=== PATIENT | female | born 1945 | race Two or more races ===

== ENCOUNTER 2018-01-29 15:14 | Outpatient (CLI) | payer OTHER ==
[~2018-01-29 15:14] MED LIST: AVAPRO150 MG; PNEU16DI2; SYNTHROID137 MCG; TOPROL XL100 M1; VITAMIN D10000 UNIT
== END 2018-01-29 15:22 | disposition home or self-care (01) ==
LOC: RAD 501 15:14
DX: M25.561 Pain in right knee (principal); M16.11 Unilateral primary osteoarthritis, right hip

== ENCOUNTER 2020-06-22 12:26 | Outpatient (CLI) | payer OTHER | END 2020-06-22 12:32 | disposition HB | LOC: MAMO-SONO 12:26 | DX: N64.59 Other signs and symptoms in breast (principal); R92.0 Mammographic microcalcification found on diagnostic imaging of breast ==

== ENCOUNTER 2020-09-25 10:23 | Outpatient (CLI) | payer OTHER | END 2020-09-25 11:59 | disposition home or self-care (01) | LOC: LAB 10:23 | DX: E78.2 Mixed hyperlipidemia (principal); E11.65 Type 2 diabetes mellitus with hyperglycemia ==

== ENCOUNTER 2021-08-01 13:36 | Outpatient (CLI) | payer OTHER | END 2021-08-01 13:44 | disposition home or self-care (01) | LOC: MAMO-SONO 13:36 | PROVIDERS: ATTEND Internal Medicine Hematology & Oncology | DX: C50.919 Malignant neoplasm of unspecified site of unspecified female breast (principal) ==

== ENCOUNTER 2021-09-02 08:00 | Outpatient (CLI) | payer OTHER | END 2021-09-02 08:30 | disposition home or self-care (01) | LOC: PPH VACUNA 08:00 | PROVIDERS: ATTEND Emergency Medicine Pediatric Emergency Medicine | DX: Z23 Encounter for immunization (principal) ==

== ENCOUNTER 2021-11-01 13:46 | Outpatient (CLI) | payer OTHER | END 2021-11-01 13:50 | disposition home or self-care (01) | LOC: RAD 13:46 | PROVIDERS: ATTEND Internal Medicine Cardiovascular Disease | DX: I11.9 Hypertensive heart disease without heart failure (principal) ==

== ENCOUNTER 2022-02-17 13:38 | Outpatient (CLI) | payer OTHER | END 2022-02-17 13:48 | disposition home or self-care (01) | LOC: PPH VACUNA 13:38 | PROVIDERS: ATTEND Emergency Medicine Pediatric Emergency Medicine | DX: Z23 Encounter for immunization (principal) ==

== ENCOUNTER 2022-07-28 12:14 | Outpatient (CLI) | payer OTHER | END 2022-07-28 12:17 | disposition home or self-care (01) | LOC: TOM 12:14 | PROVIDERS: ATTEND Internal Medicine | DX: G45.9 Transient cerebral ischemic attack, unspecified (principal) ==

== ENCOUNTER 2022-11-10 13:43 | Outpatient (CLI) | payer OTHER | END 2022-11-10 13:54 | disposition home or self-care (01) | LOC: RAD 13:43 | PROVIDERS: ATTEND Orthopaedic Surgery | DX: M17.0 Bilateral primary osteoarthritis of knee (principal); M16.11 Unilateral primary osteoarthritis, right hip; S32.012A Unstable burst fracture of first lumbar vertebra, initial encounter for closed fracture ==

== ENCOUNTER 2023-06-05 12:54 | Outpatient (CLI) | payer OTHER | END 2023-06-05 13:03 | disposition home or self-care (01) | LOC: MAMO-SONO 12:54 | PROVIDERS: ATTEND Internal Medicine Hematology & Oncology | DX: C50.919 Malignant neoplasm of unspecified site of unspecified female breast (principal) ==

== ENCOUNTER 2023-08-16 12:15 | Outpatient (CLI) | payer OTHER | END 2023-08-16 12:20 | disposition home or self-care (01) | LOC: RAD 12:15 | PROVIDERS: ATTEND Specialist | DX: J45.998 Other asthma (principal) ==

== ENCOUNTER 2024-04-18 11:10 | Outpatient (CLI) | payer OTHER | END 2024-04-18 11:13 | disposition home or self-care (01) | LOC: SONOGRAMA 11:10 | PROVIDERS: ATTEND Specialist | DX: N19 Unspecified kidney failure (principal) ==